=== PATIENT | male | born 1980 | race Caucasian/White ===

== ENCOUNTER 2022-06-17 21:32 | Outpatient (CLI) | payer OTHER, SELFPAY | END 2022-06-17 21:33 | disposition home or self-care (01) | LOC: AMB 07-30 20:15 | PROVIDERS: PCP Family Medicine; Visit Provider Internal Medicine | DX: R07.89 Other chest pain (principal); R06.09 Other forms of dyspnea | CPT/HCPCS: A0998 ==

== ENCOUNTER 2024-06-15 21:06 | Emergency (ER) | payer OTHER, SELFPAY ==
[2024-06-15 21:11] VITALS: BP 127/92; PULSE 116; RESP 18; TEMP 37.1; O2SAT 96; BMI 21.0
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
--- OUTSIDE RECORDS SUMMARY | 2024-06-15 21:49 | XMS_ITS | Encounter Summary ---
Author Organization [facility] Address [address] [place] [id number] Care Team Providers Care Equipment Man Name Role Phone Galo Briceno MD Primary Care Provider [place] vailable Reason for Visit * Reason Onset Date Comments CD Outpatient 10/14/2014 Cd eval and outp atient tx Encounter Details Date Type Department Care Team ([facility] Contact Info) Description 10/14/2014 Telephone [facility] Intake [address] [place] [phone] Generic, Behavioral Intake, CD Outpatient (Cd eval and outpatient tx) Social History Tobacco Use Types Packs/Day Years Used Date Smoking Tobacco: Every Day Cigarettes Alcohol Use Standard Drinks/Week Comments Yes 10 (1 standard drink = 0.6 oz pu re alcohol) Sex and Gender Information Value Date Recorded Sex Assigned at Not on file Gender Identity Not on file Sexual Orientation Not on file documented as of this encounter Miscellaneous Notes * Telephone Encounter - Elissa Rodriguez - 10/14/2014 1:10 PM CST Client informed by Juve Barfield at [facility] Rule 25 that he makes too much money to qualify for [facility] funding. No insurance. Transferred to [facility] to discuss possible costs of treatment.Elissa Rodriguez B TECH documented in this encounter Plan of Treatment Not on file documented as of this encounter Visit Diagnoses Not on filedocumented in this encounter Care Teams Equipment Man Relationship Specialty Start Date End Date Galo Briceno MD PCP - General Family Practice 10/15/11 05/15/23 documented as of this encounter
--- OUTSIDE RECORDS SUMMARY | 2024-06-15 21:49 | XMS_ITS | Referral Summary ---
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 To affected eye 5 mL 0 10/15/2011 Active Ranitidine HCl (ZANTAC PO) Active Omeprazole (PRILOSEC PO) Active methylPREDNISolone (MEDROL DOSEPAK) 4 MG tablet therapy pack Follow Package Directions 21 tablet 11/25/2018 Active Immunizations Name Administration Dates Next Due TDAP Vaccine (Adacel) 10/15/2011 Social History Tobacco Use Types Packs/Day Years Used Date Smoking Tobacco: Every Day Cigarettes Alcohol Use Standard Drinks/Week Comments Yes 10 (1 standard drink = 0.6 oz pu re alcohol) Sex and Gender Information Value Date Recorded Sex Assigned at Not on file Gender Identity Not on file Sexual Orientation Not on file Last Filed Vital Signs Vital Sign Reading Time Taken Comments Blood Pressure 129/90 11/25/2018 4:55 PM CDT Pulse 96 09/06/2015 11:59 PM [employer]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
--- OUTSIDE RECORDS SUMMARY | 2024-06-15 21:49 | XMS_ITS | Clinical Summary ---
Author Organization [facility] Address [address] [place] [id number] Care Team Providers Care Tank Crewmember Name Role Phone Unavailable Primary Care Provider [...] PM CDT Pulse 96 09/06/2015 11:59 PM [employer] Temperature 36.7 ??C (98 ??F) 11/25/2018 3:44 PM CDT Respiratory Rate 12 11/25/2018 4:55 PM CDT Oxygen Saturation 97% 11/25/2018 4:55 PM CDT Inhaled Oxygen Concentration - - Weight 54.4 kg (120 lb) 10/15/2011 7:32 PM [employer] Height 167.6 cm (5' 6) 10/15/2011 7:32 PM [employer] Body Mass Index 19.37 10/15/2011 7:32 PM [employer] Plan of Treatment Not on file
== END 2024-06-15 22:29 | disposition home or self-care (01) ==
PROVIDERS: Emergency Provider Family Medicine; PCP Family Medicine
DX: T23.251A Burn of second degree of right palm, initial encounter (principal)
CPT/HCPCS: 99283; 99284